=== PATIENT | female | born 1930 | race Caucasian/White ===

== ENCOUNTER 2019-07-01 15:10 | Emergency (ER) | payer OTHER ==
[~2019-07-01] VITALS: Ht 170.2 cm; Wt 64.4 kg
[~2019-07-01 15:10] MED LIST: ACETAMINOPHEN325 M1 PO; ARICEPT 5 MG TAB5 MG; ATORVASTATIN CA40 MG; CIPRO500 MG; HYDROCODON-ACE1 EAC7 PO; LOPRESSOR50; SEROQUEL 25 MG25 M1; TOPROL XL50 MG PO; VYTORIN 10-801 EACH PO; XANAX 0.25 MG0.25 MG PO; ZOFRAN ODT4 MG SUBLING; ZOLOFT50 MG
[2019-07-01] MEDS ORDERED: CENTANY30 GM TOP ×2 (16:30→16:31)
[2019-07-01] MEDS ORDERED: AUGMENTIN 875-1 EACH PO ×2 (16:30→16:31)
[2019-07-01 16:47] VITALS: BP 144/79
== END 2019-07-01 16:47 | disposition home or self-care (01) ==
LOC: M.ERS 15:10
DX: S81.812A Laceration without foreign body, left lower leg, initial encounter (principal); I10 Essential (primary) hypertension; E78.00 Pure hypercholesterolemia, unspecified; Z90.710 Acquired absence of both cervix and uterus; Z88.2 Allergy status to sulfonamides; W01.0XXA Fall on same level from slipping, tripping and stumbling without subsequent striking against object, initial encounter; Y92.89 Other specified places as the place of occurrence of the external cause; Y93.89 Activity, other specified; Y99.8 Other external cause status